=== PATIENT | male | born 1955 | race Caucasian/White ===

== ENCOUNTER 2020-12-14 14:35 | Emergency (ER) | payer MEDICARE ==
[2020-12-14 15:05] VITALS: BP 110/71; PULSE 101; RESP 20; TEMP 98.8
--- NOTE | 2020-12-14 15:19 | ED ---
General Adult HPI - General Chief complaint: Extremity Problem,Nontraumatic Stated complaint: US needed,sent by Samantha Time Seen by Provider: 12/14/20 15:08 Source: patient, RN notes reviewed, old records reviewed Mode of arrival: ambulatory Limitations: no limitations - History of Present Illness Initial comments: 65-year-old well-appearing male gentleman, alert and oriented 4, presents to the emergency room with complaints of right leg swelling. Patient had a total knee replacement and Faustino Lou on 12/07. He was at physical therapy today and they directed him to come to the emergency room for ultrasound to rule out DVT. His right leg is significantly more swollen than the left. He states that it is better when he gets up in the morning after its been elevated all night but throughout the day it increases in swelling. He states there is minimal pain 4 out of 10. He denies any fevers numbness or tingling. -: week(s) (1) Location: right, lower extremity Radiation: non-radiation Severity scale (1-10): 4 Quality: aching Consistency: intermittent Improves with: other (elevation) Worsens with: other Associated Symptoms: denies other symptoms Treatments Prior to Arrival: none - Related Data Home Medications Medication Instructions Recorded Confirmed Aspirin EC [Ecotrin Low Dose] 81 mg PO BID 12/14/20 12/14/20 Ibuprofen [Motrin] 600 mg PO Q8HR PRN 12/14/20 12/14/20 Sennosides [Senna] 17.2 mg PO BID PRN 12/14/20 12/14/20 oxyCODONE HCL [OxyIR] 5 mg PO Q4H PRN 12/14/20 12/14/20 Allergies Allergy/AdvReac Type Severity Reaction Status Date / Time No Known Allergies Allergy Verified 12/14/20 15:54 Review of Systems ROS Statement: Those systems with pertinent positive or pertinent negative responses have been documented in the HPI. ROS Other: All systems not noted in ROS Statement are negative. Past Medical History Additional Past Medical History / Comment(s): stasis dermatitis History of Any Multi-Drug Resistant Organisms: None Reported Past Surgical History: Hernia Repair, Joint Replacement, Orthopedic Surgery Additional Past Surgical History / Comment(s): R knee replacement 11/2020 Past Psychological History: No Psychological Hx Reported Smoking Status: Never smoker Past Alcohol Use History: Daily Past Drug Use History: None Reported General Exam Limitations: no limitations General appearance: alert, in no apparent distress Head exam: Present: atraumatic, normocephalic, normal inspection Eye exam: Present: normal appearance, EOMI. Absent: scleral icterus, conjunctival injection, periorbital swelling ENT exam: Present: normal exam, normal oropharynx, mucous membranes moist Neck exam: Present: normal inspection, full ROM. Absent: tenderness, meningismus, lymphadenopathy Respiratory exam: Present: normal lung sounds bilaterally. Absent: respiratory distress, wheezes, rales, rhonchi, stridor Cardiovascular Exam: Present: normal rhythm, tachycardia, normal heart sounds. Absent: systolic murmur, diastolic murmur, rubs, gallop, clicks GI/Abdominal exam: Present: soft, normal bowel sounds. Absent: distended, tenderness, guarding, rebound, rigid Extremities exam: Present: normal capillary refill (Right leg), pedal edema, joint swelling (Right knee). Absent: calf tenderness Right Knee exam: Present: tenderness, swelling, laceration (Surgical incision with tiffanie intact), ecchymosis, full knee extension Lower Leg exam: Present: swelling, laceration (Surgical incision with tiffanie intact), ecchymosis Ankle exam: Present: full ROM, swelling, ecchymosis Foot/Toe exam: Present: full ROM, swelling, ecchymosis Neurovascular tendon exam: Present: no vascular compromise. Absent: abnormal cap refill, extremity cold to touch, pallor, foot drop Back exam: Present: normal inspection, full ROM. Absent: tenderness, rash noted Neurological exam: Present: alert, oriented X3, CN II-XII intact Psychiatric exam: Present: normal affect, normal mood Skin exam: Present: warm, dry, intact, normal color. Absent: rash Course Vital Signs 12/14/20 15:02 Temperature 98.8 F Pulse Rate 101 H Respiratory 20 Rate Blood Pressure 110/71 O2 Sat by Pulse 99 Oximetry Medical Decision Making - Medical Decision Making An ultrasound of the right lower extremity shows no DVT. There are multiple lymph nodes present within the right inguinal area. This is likely post surgical swelling. He states that the swelling does resolve when elevated at night. Positive pedal pulses and good capillary refill noted. Patient denies any fevers. Tiffanie are intact. There is no evidence of infection. Patient states that he may have overdone it and been up on his leg too much for too long. He does have an appointment scheduled with his surgeon next week. He was offed pain medication in the emergency room and he declined. He states he has medication scheduled to take at home. Case discussed with Dr. Dougherty Disposition Clinical Impression: Edema of lower extremity Disposition: HOME SELF-CARE Condition: Good Instructions (If sedation given, give patient instructions): Leg Edema (ED) Additional Instructions: Continue elevating your leg at night. Use the compression socks as directed by your surgeon. Keep your appointments as scheduled for follow-up. Return to the emergency room with any new or worsening symptoms including increased pain, tingling or pale cold foot. Is patient prescribed a controlled substance at d/c from ED?: No Referrals: Brigido Singh III, MD [Primary Care Provider] - 1-2 days Time of Disposition: 16:20
--- NOTE | 2020-12-14 15:46 | US ---
EXAMINATION TYPE: US venous doppler duplex LE RT DATE OF EXAM: 12/14/2020 3:39 PM COMPARISON: NONE CLINICAL HISTORY: pain. Pt states right leg pain and swelling s/p right total knee 1 week ago SIDE PERFORMED: Right TECHNIQUE: The lower extremity deep venous system is examined utilizing real time linear array sonog lenny with graded compression, doppler sonography and color-flow sonography. VESSELS IMAGED: Common Femoral Vein Deep Femoral Vein Greater Saphenous Vein * Femoral Vein Popliteal Vein Small Saphenous Vein * Proximal Calf Veins (* superficial vessels) Right Leg: Negative for DVT, multiple lymph nodes- largest measured= 0.8 cm IMPRESSION: 1. Right lower extremity ultrasound negative for deep venous thrombosis. 2. There are multiple lymph nodes present within the right inguinal region.
== END 2020-12-14 16:49 | disposition home or self-care (01) ==
LOC: EC 14:35
DX: R60.0 Localized edema (principal); Z79.82 Long term (current) use of aspirin; Z79.1 Long term (current) use of non-steroidal anti-inflammatories (NSAID); Z79.899 Other long term (current) drug therapy; Z96.651 Presence of right artificial knee joint
CPT/HCPCS: 99283